=== PATIENT | female | born 1985 | race Caucasian/White ===

== ENCOUNTER 2017-04-12 20:08 | Emergency (ER) | payer MEDICAID, OTHER ==
[2017-04-12] MEDS ORDERED: ALBUTEROL NEB 2.5 MG/3 ML INH STA (20:28)
--- NOTE | 2017-04-12 20:38 | ED Physician Documentation ---
History of Present Illness - Stated complaint Stated Complaint: DIFFICULTY BREATHING - Chief complaint Chief Complaint: Resp - History obtained from History obtained from: Patient - History of Present Illness Timing: Today Pain level max: 0 Pain level now: 0 Improved by: rest Worsened by: walking - Additonal information Additional information: Patient is a 31-year-old who presents to the emergency department with difficulty breathing today. Diagnosed with influenza last week and took Tamiflu. Has used inhalers in the past, but does not currently have one. Feels like her chest is tight. Denies any current fever. Has a mild cough. Review of Systems Constitutional: denies: Fever, Chills Ears: denies: Ear pain Nose: reports: Rhinorrhea / runny nose PD PAST MEDICAL HISTORY - Past Medical History Endocrine/Autoimmune: Other GI: None Psych: Depression, Anxiety - Past Surgical History Past Surgical History: No General: Cholecystectomy - Present Medications Home Medications: Ambulatory Orders Medication Instructions Recorded Confirmed Estradiol 4 tab PO DAILY 10/16/13 08/25/14 Spironolactone 2 tab PO DAILY 10/16/13 08/25/14 Progesterone,Micronized 100 mg PO DAILY 07/31/14 08/25/14 [Progesterone] FLUoxetine [PROzac] 10 mg PO DAILY 08/25/14 08/25/14 traZODone [Desyrel] 100 mg PO DAILY 08/25/14 08/25/14 Albuterol Sulf [Ventolin Hfa 1 - 2 puffs INH Q4HR PRN #1 inhaler 04/12/17 Inhaler] Benzonatate [Tessalon Perle] 100 - 200 mg PO TID PRN #30 capsule 04/12/17 - Allergies Allergies/Adverse Reactions: Allergies Allergy/AdvReac Type Severity Reaction Status Date / Time No Known Drug Allergies Allergy Verified 04/12/17 20:22 - Social History Does the pt smoke?: No Smoking Status: Never smoker Does the pt drink ETOH?: Yes Does the pt have substance abuse?: No - Immunizations Immunizations are current?: Yes - POLST Patient has POLST: No PD ED PE NORMAL - Vitals Vital signs reviewed: Yes - General General: Alert and oriented X 3, No acute distress, Well developed/nourished - HEENT HEENT: PERRL, Ears normal, Moist mucous membranes, Pharynx benign - Neck Neck: Supple, no meningeal sign - Cardiac Cardiac: RRR - Respiratory Respiratory: Other (Diminished breath sounds bilaterally with occasional wheeze) - Abdomen Abdomen: Soft, Non tender, Non distended - Derm Derm: Warm and dry - Extremities Extremities: No edema, No calf tenderness / cord - Neuro Neuro: Alert and oriented X 3 - Psych Psych: Normal mood, Normal affect Results - Vitals Vitals: Vital Signs - 24 hr 04/12/17 04/12/17 04/12/17 20:20 20:38 22:11 Temperature 36.9 C 36.2 C L Heart Rate 87 91 88 Respiratory 18 20 14 Rate Blood Pressure 139/96 H 130/87 H O2 Saturation 100 100 Oxygen O2 Source Room air - EKG (time done) 2024 Rate: Rate (enter#) (81) Rhythm: NSR [place]: Normal Intervals: Normal [place] QRS: Normal Ischemia: Normal ST segments Computer interpretation: Agree with computer - Rads (name of study) Chest x-ray Radiology: Prelim report reviewed, EMP read contemporaneously, See rad report ( No acute disease) PD MEDICAL DECISION MAKING - ED course Complexity details: reviewed old records, reviewed results, re-evaluated patient , considered differential, d/w patient ED course: Patient appears to have a viral syndrome complicated by wheezing. Feels better after nebulizer treatment. Will prescribe an inhaler for home. Do not think symptoms indicate steroids at this time. No evidence of pneumonia. We will also prescribe cough medication for home and follow-up with her doctor. Patient counseled regarding signs and symptoms for which I believe and urgent re -evaluation would be necessary. Patient with good understanding of and agreement to plan and is comfortable going home at this time This document was made in part using voice recognition software. While efforts are made to proofread this document, sound alike and grammatical errors may occur. No hypoxia, no respiratory distress. Departure - Departure Disposition: Home, Self Care Clinical Impression: Viral URI Condition: Good Instructions: ED URI Viral W Wheezing Follow-Up: Althea Rivera MD [Primary Care Provider] - Within 1 week (if not better) Prescriptions: Albuterol Sulf [Ventolin Hfa Inhaler] 1 - 2 puffs INH Q4HR PRN #1 inhaler PRN Reason: Shortness Of Air/Wheezing Benzonatate [Tessalon Perle] 100 - 200 mg PO TID PRN #30 capsule PRN Reason: Cough Comments: Drink plenty of fluids and rest. Return if you worsen. Discharge Date/Time: 04/12/17 22:14
[2017-04-12 22:15] VITALS: BP 130/87
--- NOTE | 2017-04-12 22:15 | XRAY Report ---
EXAM: CHEST RADIOGRAPHY EXAM DATE: 04/12/2017 09:28 PM. CLINICAL HISTORY: Cough, wheezing. COMPARISON: None. TECHNIQUE: 1 view. FINDINGS: Lungs/Pleura: No focal opacities evident. No pleural effusion. No pneumothorax. Mediastinum: Within exam limitations, the cardiomediastinal contour is normal. Other: None. IMPRESSION: Normal single view chest. [facility] Referring Provider Line: [phone] SITE ID: [id number]
== END 2017-04-12 22:14 | disposition home or self-care (01) ==
LOC: ED 20:08
DX: J06.9 Acute upper respiratory infection, unspecified (principal); B97.89 Other viral agents as the cause of diseases classified elsewhere
CPT/HCPCS: 71045; 93005; 94640; 99283; 99284; J7613

== ENCOUNTER 2019-10-24 12:29 | Outpatient (CLI) | payer OTHER ==
[2019-10-24 20:19] LABS: TRICHOMONAS VAGINALIS DNA NEGATIVE (NEGATIVE)
[2019-10-25 12:57] LABS: HEPATITIS C ANTIBODY NON-REACTIVE (NON-REACTIVE)
[2019-10-25 15:53] LABS: HIV AG/AB 4TH GEN NON-REACTIVE (NON-REACTIVE)
== END 2019-10-24 12:30 | disposition home or self-care (01) ==
LOC: LAB 12:29
PROVIDERS: ATTEND Family Medicine
DX: Z20.2 Contact with and (suspected) exposure to infections with a predominantly sexual mode of transmission (principal)
CPT/HCPCS: 36415; 81599; 86592; 86803; 87389; 87491; 87591; 87661

== ENCOUNTER 2020-01-13 15:39 | Outpatient (CLI) | payer OTHER | END 2020-01-13 15:40 | disposition home or self-care (01) | LOC: COV 15:39 | PROVIDERS: ATTEND Family Medicine | DX: R05 Cough (principal); M79.10 Myalgia, unspecified site; R53.83 Other fatigue; J02.9 Acute pharyngitis, unspecified; R09.81 Nasal congestion; R68.83 Chills (without fever); Z20.828 Contact with and (suspected) exposure to other viral communicable diseases ==